=== PATIENT | male | born 1990 | race Caucasian/White ===

== ENCOUNTER 2018-12-15 18:10 | Inpatient (IN) | payer SELFPAY ==
[2018-12-15] MEDS ORDERED: Nicotine Inhaler* 10 MG AMP INH PRN (18:43)
--- NOTE | 2018-12-15 18:48 | ED ---
Psychiatric Complaint - HPI Summary HPI Summary: A 28 y/o male presents to [facility] with a chief complaint of requesting a mental health evaluation after having been off of Remeron for two weeks. The patient identifies herself as a woman, saying my name is Christy. However, this has led to problems with getting her prescriptions filled because her insurance and her psychiatrist has been using the name Jaimie instead of [facility], even though the patient told her psychiatrist to send her medication to [facility]. The patient reports that these circumstances caused him to have a mental breakdown and reports some SI claiming that they may be killing someone because of this. She has been [facility] to [facility] before. Her usual dosage of Remeron was 30 mg 2 tablets at night. - History Of Current Complaint Chief Complaint: EDMentalHealth Time Seen by Provider: 12/15/18 18:36 Hx Obtained From: Patient Onset/Duration: Sudden Onset, Lasting Hours, Still Present Timing: Hours Severity Initially: Mild Severity Currently: Mild Character: Frustrated Aggravating Factor(s): Nothing Alleviating Factor(s): Nothing Associated Signs And Symptoms: Negative: Hallucinating Related History: Positive For: Prior Psychiatric Issues Has Suicidal: Reports: Thoughts Has Homicidal: Denies: Thoughts - Allergies/Home Medications Allergies/Adverse Reactions: Allergies Allergy/AdvReac Type Severity Reaction Status Date / Time No Known Allergies Allergy Verified 12/15/18 18:16 PMH/Surg Hx/FS Hx/Imm Hx Endocrine/Hematology History: Denies: Hx Diabetes Cardiovascular History: Denies: Hx Hypertension Infectious Disease History: No Infectious Disease History: Denies: Traveled Outside the [place] in Last 30 Days - Family History Known Family History: Negative: Blood Disorder - Social History Alcohol Use: Rare Substance Use Type: Reports: Marijuana Smoking Status (MU): Former Smoker Review of Systems Negative: Fever Psychological: Other - positive: SI All Other Systems Reviewed And Are Negative: Yes Physical Exam - Summary Physical Exam Summary: Appearance: The patient is well-nourished in no acute distress and in no acute pain. Looks like a man but talks like a woman. Skin: The skin is warm and dry and skin color reflects adequate perfusion. HEENT: The head is normocephalic and atraumatic. The pupils are equal and reactive. The conjunctivae are clear and without drainage. Nares are patent and without drainage. Mouth reveals moist mucous membranes and the throat is without erythema and exudate. The external ears are intact. The ear canals are patent and without drainage. The tympanic membranes are intact. Neck: The neck is supple with full range of motion and non-tender. There are no carotid bruits. There is no neck vein distension. Respiratory: Chest is non-tender. Lungs are clear to auscultation and breath sounds are symmetrical and equal. Cardiovascular: Heart is regular rate and rhythm. There is no murmur or rub auscultated. There is no peripheral edema and pulses are symmetrical and equal. Abdomen: The abdomen is soft and non-tender. There are normal bowel sounds heard in all four quadrants and there is no organomegaly palpated. Musculoskeletal: There is no back tenderness noted. Extremities are non-tender with full range of motion. There is good capillary refill. There is no peripheral edema or calf tenderness elicited. Neurological: Patient is alert and oriented to person, place and time. The patient has symmetrical motor strength in all four extremities. Cranial nerves are grossly intact. Deep tendon reflexes are symmetrical and equal in all four extremities. Psychiatric: The patient has an appropriate affect and does not exhibit any anxiety or depression. Triage Information Reviewed: Yes Vital Signs On Initial Exam: Initial Vitals Temp Pulse Resp BP Pulse Ox 98.8 F 108 16 137/102 98 12/15/18 18:16 12/15/18 18:16 12/15/18 18:16 12/15/18 18:16 12/15/18 18:16 Vital Signs Reviewed: Yes Diagnostics - Vital Signs Vital Signs Temp Pulse Resp BP Pulse Ox 12/15/18 18:16 98.8 F 108 16 137/102 98 - Laboratory Result Diagrams: 12/15/18 18:52 Lab Statement: Any lab studies that have been ordered have been reviewed, and results considered in the medical decision making process. Course/Dx - Course Course Of Treatment: worsens.Jaimie has had blood drawn and is awaiting medical clearance and a MHE. She is cooperative. - Differential Dx/Clinical Impression Provider Diagnosis: Situational psychosis, brief Discharge - Sign-Out/Discharge Documenting (check all that apply): Sign-Out Patient Signing out patient TO: Kayla Melton - pending labs, MHE Patient Received Moderate/Deep Sedation with Procedure: No - Discharge Plan Condition: Stable Referrals: Tali Barcenas MD [Primary Care Provider] - - Billing Disposition and Condition Condition: STABLE - Attestation Statements Document Initiated by Scribe: Yes Documenting Scribe: Stiven Guidry Provider For Whom Jen is Documenting (Include Credential): Elder Tripp MD Scribe Attestation: I, Stiven Guidry, scribed for Elder Tripp MD on 12/15/18 at 1901. Scribe Documentation Reviewed: Yes Provider Attestation: The documentation as recorded by the Stiven duran accurately reflects the service I personally performed and the decisions made by me, Elder Tripp MD Status of Scribe Document: Viewed
[2018-12-15 18:59] LABS: ABS Basophils 0.1 10^3/ul (0-0.2); ABS Eosinophils 0 10^3/ul (0-0.6); ABS Monocytes 0.8 10^3/ul (0-0.8); ABS Neutrophils 6.4 10^3/ul (1.5-7.7); ABS Nucleated RBC 0 10^3/ul; Eosinophil % 0.3 %; Hematocrit 43 % (36-46); Hemoglobin 14.8 g/dL (14.0-18.0); Lymphocyte % 21.5 %; Mean Corpuscular HGB Conc 35 g/dL (31-36); Mean Corpuscular Hemoglobin 32 pg (27-31); Mean Corpuscular Volume 93 fL (80-94); Mean Platelet Volume 8.1 fL (7.4-10.4); Nucleated Red Blood Cells % 0.1; Platelet Count 253 10^3/uL (150-450); Red Blood Count 4.63 10^6 /uL (4.18-5.48); Red Cell Distribution Width 13 % (10.5-15); White Blood Count 9.4 10^3/uL (3.5-10.8)
--- NOTE | 2018-12-15 19:11 | ED ---
Progress - Progress Note Progress Note: A 28 y/o male presents to [facility] with a chief complaint of requesting a mental health evaluation after having been off of Remeron for two weeks. Patient was signed out from Dr. Elder Tripp to Dr. Kayla Melton during a shift change, pending labs and a MHE Course/Dx - Course Course Of Treatment: Patient was signed out to Dr. Melton from Dr. Elder Tripp durnig a shift change. Patient was given a MHE and admitted with a dx of unspecified depression. - Diagnoses Provider Diagnoses: Depression Discharge - Sign-Out/Discharge Documenting (check all that apply): Patient Departure - Admit, Receiving Sign- Out Receiving patient FROM: Elder Tripp - Pending labs and MHE Patient Received Moderate/Deep Sedation with Procedure: No - Discharge Plan Condition: Stable Disposition: ADMITTED TO [facility] - Attestation Statements Document Initiated by Scribe: Yes Documenting Scribe: Miguel Galvan Provider For Whom Scribe is Documenting (Include Credential): Kayla Melton MD Scribe Attestation: Miguel Perez, scribed for Kayla Melton MD on 12/16/18 at 0039. Status of Scribe Document: Ready
[2018-12-15 19:17] LABS: ALT 10 U/L (7-52); AST 16 U/L (13-39); Albumin 4.7 g/dL (3.2-5.2); Albumin/Globulin Ratio 1.7 (1-3); Alkaline Phosphatase 52 U/L (34-104); Anion Gap 10 mmol/L (2-11); BUN/Creatinine Ratio 10.6 (8-20); Blood Urea Nitrogen 11 mg/dL (6-24); CO2 Carbon Dioxide 24 mmol/L (22-32); Calcium 9.6 mg/dL (8.6-10.3); Chloride 101 mmol/L (101-111); EGFR African American 102.9 (>60); Globulin 2.7 g/dL (2-4); Glucose 101 mg/dL (70-100); Sodium 135 mmol/L (135-145); Total Protein 7.4 g/dL (6.4-8.9)
[2018-12-15 19:41] LABS: Acetaminophen < 15 mcg/mL; Alcohol < 10 mg/dL (<10); Salicylate < 2.50 mg/dL (<30)
[2018-12-15 19:55] LABS: TSH (Thyroid Stimulating Horm) 1.21 mcIU/mL (0.34-5.60)
[2018-12-15 20:46] LABS: Urine Appearance Cloudy; Urine Bilirubin Negative (Negative); Urine Blood Negative (Negative); Urine Color Yellow; Urine Glucose Negative (Negative); Urine Ketones 1+ (Negative); Urine Nitrite Negative (Negative); Urine Protein Negative (Negative); Urine Specific Gravity 1.008 (1.010-1.030); Urine Urobilinogen Negative (Negative)
[2018-12-15 21:05] LABS: Barbiturates Urine Screen None Detected (None Detect); Benzodiazepine Urine Screen None Detected (None Detect); Urine Cannabinoids Screen Presumptive Positive (None Detect)
[2018-12-16] MEDS ORDERED: Mouth Piece, Nicotine* 1 EACH CARTRIDGE INH ONE (01:00)
[2018-12-16] MEDS ORDERED: Mirtazapine TAB* 15 MG PO ONE (01:02)
[2018-12-16] MEDS ORDERED: Acetaminophen TAB* 325 MG PO PRN (04:20)
[2018-12-16] MEDS ORDERED: Al Hydrox/Mg Hydrox/Simet LIQ* 30 ML UDC PO PRN (04:20)
[2018-12-16 09:33] LABS: HDL Cholesterol 57.1 mg/dL
[2018-12-16] MEDS: Vitamin THERAPEUTIC TAB PO SCH (11:59)
--- NOTE | 2018-12-16 20:21 | HP ---
HISTORY AND PHYSICAL: DATE OF ADMISSION: 12/15/18 SUPERVISING PSYCHIATRIST: Dr. Perico Wells.* (DICTATED BY SHAGGY MARCUM NP) JUSTIFICATION FOR ADMISSION: The patient presented to the emergency department due to suicidal ideation with plans. The patient merits hospitalization for immediate safety and stabilization. DEMOGRAPHICS: The patient is a 28-year-old transgender, male to female, , domiciled, employed, who presents to emergency department with suicidal ideation, aggressive behavior, paranoid ideation in the context of not having prescribed psychiatric medications. CHIEF COMPLAINT: "I don't feel safe being around people." HISTORY OF PRESENT ILLNESS: The patient goes by the name Jaimie. She reports she started hormone replacement therapy in November 2007 through [facility] in [place]. She states since that time she is also being prescribed mirtazapine and due to change in name, she has had increasing difficulty obtaining the prescription for mirtazapine. She states that since being out of this medication, she has "tantrums, verbally lashes out, and has a short fuse." She endorses decreased energy and suicidal ideation. According to collateral from the emergency room, her parents, father, and stepmother reported the patient was threatening to suicide yesterday and has had aggressive behaviors that they have never seen in the last 5 to 6 years. The patient has been making statements that say, "I might as well be and everyone is against me." They report this is new behavior, although she has made threats in the past including homicidal ideation. The parents have locked their guns a long time ago and take all medications to work with them each day. The patient endorses hopelessness, helplessness. She states that she made 4 attempts at suicide in July or August of last year over a week's span. She states she would cut herself and sit in the bathtub hoping to bleed out. She endorses poor concentration and decreased energy. The patient reports poor appetite. She states not having mirtazapine is the primary reason for being here. Since being admitted, she submitted a 72-hour notice due to being "bored and just wanting Remeron prescription." She endorses a history of restricting and binging and purging. She reports long history of vivid nightmares, sleep paralysis, and night terrors. She denies change in sleep. Denies history of jassi or psychosis. She states she has been seeing mental health therapists on and off since she was [age] years old due to behavioral issues. She states she has had various diagnoses including ADHD, Tourette's, and anxiety. PAST PSYCHIATRIC HISTORY: According to the patient, she has been seen off and on since she was a child for behavioral issues. She alludes to having seen [facility] for EMDR in the past. She states she is currently seeing Dr. Rubio Brown in [facility] via [facility]. She goes on to describe various names in the [place] area that I am not familiar with, including Paola Erickson until last April. She states she has been seen in the [facility], but denies other inpatient admissions or a history of substance use treatment. PAST MEDICATION HISTORY: The patient reports Adderall worsened tics. 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 She does not know these medications by name. TRAUMA/ABUSE HISTORY: The patient reports a history of being bullied. She denies other abuse. SUBSTANCE USE HISTORY: The patient reports onset of drinking alcohol at age 15. She states that she drank daily around 2013 and 2014 and now drinks socially once or twice a month. She states her last drink was last week. Marijuana use, onset in 2017. She states, "If I have money, it is all day every day." Otherwise, last use was last weekend. She reports experimenting with LSD, MDMA, and cocaine, last time 5 years ago. PAST MEDICAL HISTORY: The patient denies, other than transgender hormone replacement therapy. PAST SURGICAL HISTORY: None. CURRENT MEDICATIONS: To be determined. Per the patient: 1. Spironolactone. 2. Estradiol. 3. Gabapentin. 4. Prozac. 5. Mirtazapine. She is not aware of the doses. ALLERGIES: No known drug allergies. FAMILY PSYCHIATRIC HISTORY: The patient reports that her father stopped drinking alcohol when she was born. She states her mom may have suffered with depression, but she is unsure. She reports her paternal aunt has bipolar disorder. She denies knowledge of suicide in the family. SOCIAL HISTORY: The patient was born and raised in the [place], went to [employer]. She reports having many behavioral issues including poor attention, verbal tantrums, being a class clown, and being disruptive. She denies a history of aggression. The patient states she completed high school via tutoring due to behavioral problems. She went to [employer] and graduated with a BA in philosophy. 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 She states that she likes this work and also alludes to a hostile work environment. REVIEW OF SYSTEMS: Constitutional: Negative. No fevers, chills, or fatigue. ENT: Negative. Cardiovascular: Negative. Denies chest pain or palpitations. Respiratory: Negative. Denies shortness of breath or cough. Genitourinary: Negative. Musculoskeletal: Negative. Neurological: Negative. PHYSICAL EXAMINATION GENERAL: The patient is well appearing and well nourished. VITAL SIGNS: Height 5 feet 11 inches, weight 165 pounds. T 97.2, P 63, respiration rate 16, O2 saturation 100%, BP 91/52. The patient declines physical exam citing lack of subjective need. It is appropriate to defer this at this time. I have reviewed the physical exam done in the emergency department. For further exam data, please see ED provider report. DIAGNOSTIC STUDIES/LAB DATA: Laboratory Data: CBC grossly unremarkable. Chemistry within normal limits. TSH normal at 1.21. Hemoglobin A1c 4.8. Lipid panel within normal limits. Urinalysis: 1+ ketones; otherwise; within normal limits. Toxicology positive for cannabinoids; otherwise, negative for salicylates, acetaminophen, or alcohol. MENTAL STATUS EXAM: Jaimie is a 28-year-old transgender, male to female, who appears stated age. She is well groomed and has long dark hair. She is dressed in her own clothing and sits with erect posture and crossed legs. She is cooperative with the interview and easy to establish rapport. She appears to be a somewhat poor historian. She is alert and oriented x3. Eye contact is good. Speech is soft and articulate with loud volume at times. Mood is euthymic with full range of affect. No abnormal psychomotor activity noted. Thought process is circumstantial, logical, and coherent. Thought content is positive for fleeting suicidal ideation with plan. She denies auditory or visual hallucinations or delusions. Insight and judgment are poor. DIAGNOSES: 1. Unspecified depressive disorder, rule out major depressive disorder. 2. Gender identity disorder, consider borderline personality disorder. ASSESSMENT: "Jaimie" is a 28-year-old male to female transgender, , domiciled, employed in [place], who presented to the ED due to increased depression and suicidal ideation in the context of not having prescribed Remeron. She also reports being prescribed other medications and alludes to having a telepsychiatrist prescribing her medications. At this time, this information has yet to be confirmed. We also need to identify her medication regimen. The patient submitted a 72-hour notice today and is agreeable to remain hospitalized to assess effects of medications and prepare for discharge planning. She states she is in the process of relocating back home with her parents and is interested in local mental health treatment. PLAN: The patient is admitted to adult behavioral services unit on voluntary status. Her code status is full. She is placed on 15-minute checks for safety. She is encouraged to participate in supportive milieu, individual sessions with staff, and psychoeducational groups. We will identify current medications and titrate to efficacy. She agrees to reinstate mirtazapine and to trial prazosin for nightmares. Estimated length of stay is 3 days. Discharge planning will include family involvement per the patient's consent and referral to outpatient providers. SHAGGY MARCUM NP [id number]/[facility] #: [id number] AIDEE
[2018-12-16] MEDS: Gabapentin CAP(*) 300 MG PO SCH (22:01)
[2018-12-16] MEDS: Prazosin CAP* 1 MG PO SCH (22:02)
[2018-12-16] MEDS: Mirtazapine TAB* 15 MG PO SCH (22:02)
[2018-12-17] MEDS: Gabapentin CAP(*) 300 MG PO SCH ×3 (09:17→20:18)
[2018-12-17] MEDS: Spironolactone TAB* 25 MG PO SCH (09:18)
[2018-12-17] MEDS: Vitamin THERAPEUTIC TAB PO SCH (09:18)
[2018-12-17] MEDS: Estradiol (NF) 0.5 MG TAB PO SCH (09:20)
[2018-12-17] MEDS: Mirtazapine TAB* 15 MG PO SCH (20:18)
[2018-12-17] MEDS: Prazosin CAP* 1 MG PO SCH (20:18)
[2018-12-18] MEDS: Spironolactone TAB* 25 MG PO SCH (07:28)
[2018-12-18] MEDS: Gabapentin CAP(*) 300 MG PO SCH ×3 (07:28→20:09)
[2018-12-18] MEDS: Vitamin THERAPEUTIC TAB PO SCH (07:30)
[2018-12-18] MEDS: Estradiol (NF) 0.5 MG TAB PO SCH (13:39)
[2018-12-18] MEDS: Mirtazapine TAB* 15 MG PO SCH (20:10)
[2018-12-18] MEDS: Prazosin CAP* 1 MG PO SCH (20:10)
[2018-12-19] MEDS: Gabapentin CAP(*) 300 MG PO SCH (07:32)
[2018-12-19] MEDS: Vitamin THERAPEUTIC TAB PO SCH (07:33)
[2018-12-19] MEDS: Spironolactone TAB* 25 MG PO SCH (07:33)
[2018-12-19 09:16] VITALS: BP 130/61
[2018-12-19] MEDS ORDERED: ESTRADIOL 2 MG PO SCH (10:30)
--- NOTE | 2018-12-19 13:03 | DS ---
DISCHARGE SUMMARY: DATE OF ADMISSION: 12/15/18 DATE OF DISCHARGE: 12/19/18 SUPERVISING PSYCHIATRIST: Perico Wells MD * (DICTATED BY SHAGGY MARCUM NP) DISCHARGE DIAGNOSES: 1. Unspecified depressive disorder. 2. Gender identify disorder. 3. Borderline personality disorder. 4. Cannabis use disorder. CONDITION AT THE TIME OF DISCHARGE: Improved. The patient denies suicidal ideation. He is well-related, alert and oriented, and able to engage in conversation. He submitted a 72-hour notice 3 days prior and was agreeable to remain hospitalized until today for discharge planning. The patient's father was present at the time of discharge and nodded in agreement to discharge plan. He reports intent to move back to the area and has accepted offer of referral to [facility]. SHAGGY MARCUM NP [id number]/[facility] #: [id number] [facility]
--- NOTE | 2018-12-19 13:28 | DS ---
CC: [facility] * DISCHARGE SUMMARY: DATE OF ADMISSION: 12/15/18 DATE OF DISCHARGE: 12/19/18 ATTENDING PROVIDER: Dr. Wells * (DICTATED BY SHAGGY MARCUM NP) DIAGNOSES: 1. Unspecified depressive disorder. 2. Gender identity disorder. 3. Borderline personality disorder. 4. Cannabis use disorder. CONDITION AT THE TIME OF DISCHARGE: Improved. The patient denies suicidal ideation. She is calm and in behavioral control. She is well related. She has been safe on all checks. She reports desire to be discharged as soon as possible. She has phoned her father who arrived prior to meeting with promotion writer for discharge. During conversation, we discussed medication, safety and means restriction. We discussed the patient's plan to return to the area and she accepted a referral to [facility]. The patient reported sleeping well. She is well related. We discussed borderline personality disorder traits and encouraged the patient and her family members to read about this diagnosis as this treatment could be helpful for her success in social and professional interactions. The patient denies untoward effects with current medications. She exhibits future orientation. The patient is at elevated risk for suicide based on prior history and diagnostic profile. At the time of discharge, risk was lessened due to stabilization in the hospital. Due to obligations to treat in least restrictive setting, discharge was agreed upon by treatment team. MENTAL STATUS EXAM: Jaimie is a 28-year-old transgender, male to female, who appears stated age. She is well groomed and has long dark hair. She is dressed in her own clothing and sits with erect posture and crossed legs. She is cooperative with interview and answers questions fully. She is alert and oriented x3. Eye contact is good. Speech is soft and articulate. Mood is euthymic with constricted affect. No abnormal psychomotor activity noted. Thought process is circumstantial, logical, goal directed, and coherent. Thought content is negative for suicidal ideation or passive wish. She denies auditory or visual hallucinations or delusions. Insight and judgment are fair. Fund of knowledge is excellent. INSTRUCTIONS GIVEN TO THE PATIENT: A. Medications: 1. Gabapentin 300 mg p.o. t.i.d. 2. Mirtazapine 30 mg p.o. q.h.s. 3. Prazosin 1 mg p.o. q.h.s. 4. She will resume on estradiol 6 mg p.o. daily. 5. Spironolactone 100 mg p.o. daily. B. Diet: Regular. C. Activity: As tolerated. Tobacco cessation is not applicable. There are no pending labs or diagnostic studies. D. Followup Care: The patient was referred to [facility] and has an intake appointment on 12/21/18. She was referred to her primary care provider for followup. She states that she intends to follow through with [facility] in [place] for hormone therapy. E. Substance use followup: The patient declined need for substance use treatment for cannabis use disorder. HOSPITAL COURSE: Part A. Reason for admission: The patient presented to the emergency department due to suicidal ideation with plans, aggressive behavior and paranoid ideation in the context of not having prescribed psychiatric medications. The patient was admitted on adult behavioral services unit on voluntary status. Her code status was full. She was placed on 15-minute checks for safety. Encouraged to participate in supportive milieu, individual sessions with staff, and educational groups. The patient agreed to reinstate mirtazapine and to trial prazosin for nightmares. Part B. Psychiatric treatment rendered: As stated above, the patient was agreeable to a brief hospitalization. She submitted her 72-hour notice on the morning of 12/16/18. After meeting with promotion writer and social worker health services, the patient agreed to remain over the weekend to trial medications for nightmares and to give the team more time for discharge planning. The patient tolerated unit well despite high acuity. She was primarily seclusive and attended groups at times. We identified medication regimen through [facility]. I did not continue fluoxetine as she wanted to continue with mirtazapine. We clarified the doses through the pharmacy in [place]. The patient was encouraged to establish providers in the [place] area including her primary care provider. SHAGGY MARCUM, CHIDI [id number]/[facility] #: [id number] AIDEE
== END 2018-12-19 11:18 | disposition home or self-care (01) | DRG 881 ==
LOC: ED 18:10 → BSU 23:31
PROVIDERS: ADMIT Psychiatry & Neurology Psychiatry; ATTEND Psychiatry & Neurology Psychiatry
DX: F32.9 Major depressive disorder, single episode, unspecified (principal); R45.851 Suicidal ideations; F64.9 Gender identity disorder, unspecified; F60.3 Borderline personality disorder; F12.10 Cannabis abuse, uncomplicated; Z79.890 Hormone replacement therapy; Z79.899 Other long term (current) drug therapy; Z81.8 Family history of other mental and behavioral disorders
CPT/HCPCS: 36415; 80053; 80061; 80307; 80320; 80329; 81003; 83036; 84443; 85025; 99222; 99238; 99284; A9270-GY; G0480

== ENCOUNTER 2021-03-22 21:49 | Inpatient (IN) ==
[2021-03-22 23:39] LABS: ABS Basophils 0.1 10^3/ul (0-0.2); ABS Eosinophils 0.4 10^3/ul (0-0.6); ABS Lymphocytes 2.6 10^3/ul (1.0-4.8); ABS Monocytes 0.8 10^3/ul (0-0.8); ABS Neutrophils 5.7 10^3/ul (1.5-7.7); Eosinophil % 4.6 %; Hematocrit 43 % (42-52); Hemoglobin 14.4 g/dL (14.0-18.0); Lymphocyte % 26.9 %; Mean Corpuscular HGB Conc 34 g/dL (31-36); Mean Corpuscular Hemoglobin 32 pg (27-31); Mean Corpuscular Volume 94 fL (80-94); Mean Platelet Volume 8.3 fL (7.4-10.4); Nucleated Red Blood Cells % 0.1; Platelet Count 294 10^3/uL (150-450); Red Blood Count 4.55 10^6 /uL (4.18-5.48); Red Cell Distribution Width 13 % (10-15); White Blood Count 9.6 10^3/uL (3.5-10.8)
[2021-03-22 23:54] LABS: ALT 11 U/L (7-52); AST 14 U/L (13-39); Albumin 4.6 g/dL (3.2-5.2); Albumin/Globulin Ratio 1.6 (1-3); Alkaline Phosphatase 58 U/L (35-149); Anion Gap 8 mmol/L (2-11); Blood Urea Nitrogen 13 mg/dL (6-24); CO2 Carbon Dioxide 23 mmol/L (22-32); Calcium 9.4 mg/dL (8.6-10.3); Chloride 103 mmol/L (101-111); EGFR African American 103.8 (>60); EGFR Non-African American 85.8 (>60); Globulin 2.9 g/dL (2-4); Glucose 111 mg/dL (70-100); Potassium 3.9 mmol/L (3.5-5.0); Sodium 134 mmol/L (135-145); Total Protein 7.5 g/dL (6.4-8.9)
[2021-03-23 00:17] LABS: Acetaminophen < 15 mcg/mL; Alcohol, S < 10 mg/dL (<10); Salicylate < 2.50 mg/dL (<30)
[2021-03-23 00:30] LABS: TSH Ultra Thyroid Stim Horm 0.95 mcIU/mL (0.34-5.60)
[2021-03-23] MEDS ORDERED: Al Hydrox/Mg Hydrox/Simet LIQ 30 ML UDC PO PRN (03:37)
[2021-03-23] MEDS: Vitamin THERAPEUTIC TAB PO SCH (08:46)
[2021-03-23] MEDS: CMC:Estradiol 1 mg TAB (NF) PO SCH (21:42)
[2021-03-24 07:16] LABS: HDL Cholesterol 45.8 mg/dL
[2021-03-24] MEDS: Vitamin THERAPEUTIC TAB PO SCH (08:56)
[2021-03-24] MEDS: CMC:Estradiol 1 mg TAB (NF) PO SCH (08:57)
[2021-03-24] MEDS ORDERED: CMCS: Doxepin 25 mg CAP (NF) PO SCH (21:00)
[2021-03-25] MEDS ORDERED: Ziprasidone IM 20 mg VIAL 1 ml VIAL ONE (06:04)
[2021-03-25] MEDS ORDERED: LORazepam 2 mg VIAL 1 ml ONE (06:04)
[2021-03-25] MEDS ORDERED: Lorazepam PYXIS KEY ONE (06:06)
[2021-03-25] MEDS: CMC:Estradiol 1 mg TAB (NF) PO SCH (09:45)
[2021-03-25] MEDS: Vitamin THERAPEUTIC TAB PO SCH (09:45)
[2021-03-25 09:49] VITALS: BP 126/89
== END 2021-03-25 14:25 | disposition home or self-care (01) | DRG 751 ==
LOC: ED 21:49 → BSU 03-23 01:20
PROVIDERS: ADMIT Psychiatry & Neurology Psychiatry; ATTEND Psychiatry & Neurology Psychiatry